=== PATIENT | female | born 1970 | race Caucasian/White ===

== ENCOUNTER 2019-12-07 12:13 | Outpatient (CLI) | payer OTHER, SELFPAY ==
--- NOTE | ~2019-12-07 | XR_ITS ---
XR thoracic spine 3V DATE: 12/07/2019 12:51 INDICATION: Upper back pain. No known injury. TECHNIQUE: AP, lateral, swimmer views COMPARISON: None FINDINGS: There is multilevel degenerative disease of the cervical spine. There is mild degenerative spurring of the thoracic spine. No fracture or dislocation or bone destruction. The thoracic pedicles are intact. No paraspinal soft tissue thickening. IMPRESSION: Degenerative changes of the cervical and thoracic spine Reviewed, dictated and finalized at location B.
--- NOTE | ~2019-12-07 | CT_ITS ---
EXAMINATION: CTA chest PE protocol EXAM DATE: 12/07/2019 14:58 INDICATION: Elevated d-dimer, posterior chest pain. TECHNIQUE: Spiral CTA of the chest (pulmonary arteries) was performed with 100 cc Omnipaque 350 intr avenous contrast injection. Images were acquired during the pulmonary arterial phase. Coronal maxi mum intensity projection 3D-reconstructions were created by the technologist on dedicated workstation . Axial, coronal and sagittal reformatted images were reviewed. The dose-length product (DLP) for t his examination was 237.07 mGy-cm. The exposure was tailored according to patient size (auto mA exp osure control), and iterative reconstruction (ASIR) was used as additional dose reduction technique. There is no prior study for comparison. FINDINGS: Pulmonary arteries are well opacified and without intraluminal filling defects. No thora cic aortic dissection. The lungs are clear. There are no pleural or pericardial effusions. Trach eobronchial tree is patent. There is no mediastinal, hilar or axillary lymphadenopathy. There is no pneumothorax. Heart normal in size. No evidence of coronary arterial calcification. Upper abd omen is unremarkable. There is mild thoracic spondylosis without osteoblastic or osteolytic lesions identified. Paraspinal soft tissue is unremarkable. IMPRESSION: 1. No acute cardiopulmonary findings. Reviewed, dictated and finalized at location A.
[2019-12-07 12:39] LABS: Hematocrit 41.9 % (35.0-49.0); Hemoglobin 14.3 g/dL (12.0-15.0); Mean Corpuscular HGB Conc 34.1 g/dL (32.0-36.0); Mean Corpuscular Hemoglobin 29.7 pg (27.0-31.0); Mean Corpuscular Volume 87.1 fL (78.0-102.0); Mean Platelet Volume 9.6 fl (9.2-11.8); Platelet Count Result 280 K/mm3 (150-420); Red Blood Count 4.81 M/mm3 (4.20-5.40); Red Cell Distribution Width 12.9 % (11.6-14.4); White Blood Count 9.7 K/mm3 (4.8-10.8)
[2019-12-07 12:49] LABS: Add Urine Microscopic? NO; Appearance Urine Clear (Clear); Bilirubin Urine Negative (Negative); Blood Urine Negative (Negative); Color Urine Yellow (Yellow); Glucose Urine UA Negative (Negative); Ketones Urine Negative (Negative); Leukocyte Esterase Ur Negative LEU/UL (Negative); Nitrate Urine Negative (Negative); Protein Urine Negative (Negative)
[2019-12-07 13:00] LABS: D Dimer 3.39 mg/L (0.19-0.50)
[2019-12-07 13:05] LABS: Alanine Aminotransferase 86 U/L (14-59); Albumin Level 3.3 g/dL (3.4-5.0); Alkaline Phosphatase 92 U/L (46-116); Amylase 32 U/L (25-115); Anion Gap 14.1 mmol/L (7-16); Aspartate Amino Transferase 43 U/L (15-37); Band Neutrophils Percent 0 % (0-6); Basophils Percent Manual 0 % (0-1); Bilirubin,Total 0.5 mg/dL (0.00-1.00); Blood Urea Nitrogen 9 mg/dL (7-18); Calcium 8.6 mg/dL (8.5-10.1); Carbon Dioxide 25 mmol/L (21-32); Chloride 107 mmol/L (98-108); Creatine Kinase 67 U/L (26-192); Creatine Kinase MB < 0.50 ng/mL (0.00-5.00); Eosinophils Absolute Manual 1.74 K/mm3 (0.02-0.5); Eosinophils Percent Manual 18 % (1-6); Estimated Glomerular Filt Rate > 60; Free T4 Free Thyroxine 1.27 ng/dL (0.76-1.46); Glucose 91 mg/dL (70-99); Lipase 118 U/L (73-393); Lymphocytes Absolute Manual 4.17 K/mm3 (1.1-4.5); Lymphocytes Percent Manual 43 % (18-44); Monocytes Absolute Manual 0.87 K/mm3 (0.1-0.90); Monocytes Percent Manual 9 % (3-9); Neutrophils Absolute Manual 2.91 K/mm3 (1.7-7.2); Neutrophils Percent Manual 30 % (46-73); Osmolality Calculated 292 mOsm/kg (285-295); Platelet Estimate Adequate (Adequate); Potassium 4.1 mmol/L (3.5-5.1); Sodium 142 mmol/L (136-145); Thyroid Stimulating Hormone 4.57 uIU/mL (0.36-3.74); Total Cells Counted 100; Total Protein 6.9 g/dL (6.4-8.2); Troponin I < 0.02 ng/mL (0.00-0.056)
[2019-12-10 20:08] LABS: Hepatitis A Antibody IgM Nonreactive; Hepatitis B Core Antibody Nonreactive (Nonreactive); Hepatitis B Surface Antigen Nonreactive (Nonreactive); Hepatitis C Signal to Cutoff 0.02 ratio (<1.00); Hepatitis C Virus Antibody Nonreactive (Nonreactive)
== END 2019-12-07 12:14 | disposition home or self-care (01) ==
PROVIDERS: PCP Family Medicine; Visit Provider Nurse Practitioner Family
DX: R79.1 Abnormal coagulation profile (principal); R07.9 Chest pain, unspecified; R06.02 Shortness of breath; M54.9 Dorsalgia, unspecified; R79.89 Other specified abnormal findings of blood chemistry
CPT/HCPCS: 36415; 71275; 72072; 80053; 80074; 81003; 82150; 82550; 82553; 83690; 84439; 84443; 84484; 85025; 85380; Q9965

== ENCOUNTER 2019-12-08 14:40 | Outpatient (CLI) | payer OTHER, SELFPAY ==
--- NOTE | ~2019-12-08 | US_ITS ---
US right upper quadrant INDICATION: Elevated liver enzymes PROCEDURE: Realtime right upper abdominal ultrasound. COMPARISON: No prior studies for comparison. FINDINGS: The pancreas is normal without focal mass or pancreatic ductal dilation. Liver echotexture is normal without focal mass or intrahepatic biliary dilatation. There is normal directional flow i n the portal vein. Gallbladder is surgically absent Common bile duct measures 4 mm. No sonographic Salter's sign. IMPRESSION: 1: Unremarkable limited abdominal ultrasound postcholecystectomy. Reviewed, dictated and finalized at location A.
== END 2019-12-08 14:41 | disposition home or self-care (01) ==
LOC: CHSLAB 14:43
PROVIDERS: PCP Family Medicine; Visit Provider Nurse Practitioner Family
DX: R79.89 Other specified abnormal findings of blood chemistry (principal); N76.0 Acute vaginitis; Z01.419 Encounter for gynecological examination (general) (routine) without abnormal findings
CPT/HCPCS: 36415; 76705; 87491; 87510; 87591; 87624; 87660; 88142

== ENCOUNTER 2020-09-13 10:20 | Outpatient (CLI) | payer OTHER, SELFPAY ==
[2020-09-14 12:24] LABS: SARS-CoV-2 RNA PCR Negative
== END 2020-09-13 10:21 | disposition home or self-care (01) ==
LOC: CHSLAB 10:25
PROVIDERS: PCP Family Medicine; Visit Provider Family Medicine
DX: Z20.828 Contact with and (suspected) exposure to other viral communicable diseases (principal)
CPT/HCPCS: 87635; C9803; U0003

== ENCOUNTER 2020-09-15 10:35 | Outpatient (CLI) | payer OTHER, SELFPAY ==
[2020-09-16 20:00] LABS: SARS-CoV-2 RNA PCR Negative
== END 2020-09-15 10:36 | disposition home or self-care (01) ==
LOC: CHSLAB 10:37
PROVIDERS: PCP Family Medicine; Visit Provider Family Medicine
DX: Z20.828 Contact with and (suspected) exposure to other viral communicable diseases (principal)
CPT/HCPCS: 87635; C9803; U0003

== ENCOUNTER 2021-10-09 14:15 | Outpatient (CLI) | payer OTHER, SELFPAY ==
[2021-10-09 15:25] LABS: Influenza Control Valid (Valid)
[2021-10-09 15:33] LABS: SARS-CoV-2 Ag Negative (Negative)
== END 2021-10-09 14:16 | disposition home or self-care (01) ==
LOC: CHSLAB 14:18
PROVIDERS: PCP Family Medicine; Visit Provider Family Medicine
DX: R50.9 Fever, unspecified (principal); R52 Pain, unspecified; Z20.822 Contact with and (suspected) exposure to COVID-19
CPT/HCPCS: 87426; 87804; C9803

== ENCOUNTER 2022-04-20 07:29 | Outpatient (CLI) | payer OTHER, SELFPAY ==
[2022-04-20 08:07] LABS: Add Urine Microscopic? NO; Appearance Urine Clear (Clear); Basophils Absolute Auto 0.11 K/mm3 (0.00-0.10); Basophils Percent Auto 0.7 % (0.0-1.0); Bilirubin Urine Negative (Negative); Blood Urine Negative (Negative); Color Urine Light Yellow (Yellow); Eosinophils Absolute Auto 0.96 K/mm3 (0.02-0.50); Eosinophils Percent Auto 6.5 % (1.0-6.0); Glucose Urine UA Negative (Negative); Hematocrit 44.9 % (35.0-49.0); Immature Granulocyte Absolute 0.07 K/mm3 (0.00-0.00); Immature Granulocyte Percent A 0.5 % (0.0-0.0); Ketones Urine Negative (Negative); Leukocyte Esterase Ur Negative LEU/UL (Negative); Lymphocytes Absolute Auto 3.96 K/mm3 (1.10-4.50); Lymphocytes Percent Auto 26.6 % (18.0-42.0); Mean Corpuscular HGB Conc 33.4 g/dL (32.0-36.0); Mean Corpuscular Hemoglobin 29.9 pg (27.0-31.0); Mean Corpuscular Volume 89.6 fL (78.0-102.0); Mean Platelet Volume 9.9 fl (9.2-11.8); Monocytes Absolute Auto 0.72 K/mm3 (0.10-0.90); Monocytes Percent Auto 4.8 % (2.0-11.0); Neutrophils Percent Auto 60.9 % (50.0-70.0); Nitrate Urine Negative (Negative); Platelet Count Result 304 K/mm3 (150-420); Protein Urine Negative (Negative); Red Blood Count 5.01 M/mm3 (4.20-5.40); Red Cell Distribution Width 12.9 % (11.6-14.4); Specific Grav Ur <= 1.005 (1.010-1.020); Urobilinogen Urine 0.2 mg/dL (0.2-1.0); White Blood Count 14.9 K/mm3 (4.8-10.8)
[2022-04-20 08:53] LABS: Alanine Aminotransferase 24 U/L (14-59); Alkaline Phosphatase 58 U/L (46-116); Anion Gap 9 mmol/L (8-16); Aspartate Amino Transferase 18 U/L (15-37); Bilirubin,Total 0.4 mg/dL (0.00-1.00); Blood Urea Nitrogen 10 mg/dL (7-18); Calcium 9.6 mg/dL (8.5-10.1); Carbon Dioxide 25 mmol/L (21-32); Chloride 106 mmol/L (98-108); Cholesterol 197 mg/dL (0-200); Estimated Glomerular Filt Rate > 60; Glucose 87 mg/dL (70-99); HDL Direct 50 mg/dL (40-60); LDL Cholesterol Calculated 128 mg/dL (<130); Osmolality Calculated 288 mOsm/kg (285-295); Potassium 4.6 mmol/L (3.5-5.1); Sodium 140 mmol/L (136-145); Thyroid Stimulating Hormone 3.47 uIU/mL (0.36-3.74); Total Protein 6.8 g/dL (6.4-8.2); Triglycerides 94 mg/dL (0-150)
[2022-04-27 22:15] LABS: ANCA Screen Negative (Negative); Myeloperoxidase Ab <1.0 AI (<1.0); Proteinase-3 Ab <1.0 AI (<1.0); S cerevisiae Ab (IgA) 5.1 U (<=20.0); S cerevisiae Ab (IgG) 4.8 U (<=20.0)
== END 2022-04-20 07:30 | disposition home or self-care (01) ==
LOC: CHSLAB 07:31
PROVIDERS: PCP Family Medicine; Visit Provider Nurse Practitioner Family
DX: Z00.00 Encounter for general adult medical examination without abnormal findings (principal)
CPT/HCPCS: 36415; 80053; 80061; 81003; 84439; 84443; 85025; 86036; 86671

== ENCOUNTER 2025-09-11 06:36 | Day surgery (SDC) | payer OTHER, SELFPAY ==
[2025-08-17 14:15] VITALS: BMI 25.4
[2025-09-07 13:17] VITALS: BMI 24.5
--- OUTSIDE RECORDS SUMMARY | 2025-09-11 06:39 | XMS_ITS | Clinical Summary ---
Author Organization [facility] Address [address] [place] [id number] Care Team Providers Care [employer] Name Role Phone Chito Walsh MD Primary Care Provider [phone] Allergies Active Allergy Reactions Criticality Noted Date Comments Codeine Vomiting 10/16/2023 Propoxyphene Itching,Vomiting 10/16/2023 Meperidine Hcl Vomiting 10/16/2023 Medications No known medications Social History Tobacco Use Types Packs/Day Years Used Date Smoking Tobacco: Every Day Cigarettes Smokeless Tobacco: Never Tobacco Cessation:Ready to Q uit: Not Asked; Counseling Given: Not Answered Alcohol Use Standard Drinks/Week Comments Not Currently 0 (1 standard drink = 0.6 oz pur e alcohol) Comments No Sex and Gender Information Value Date Recorded Sex Assigned at Not on file Legal Sex Female 9:04 PM [employer] Gender Identity Not on file Sexual Orientation Not on file Last Filed Vital Signs Vital Sign Reading Time Taken Comments Blood Pressure 121/86 10/16/2023 10:00 PM [employer] Pulse 88 10/16/2023 10:00 PM [employer] Temperature 36.3 C (97.3 F) 10/16/2023 8:52 PM [employer] Respiratory Rate 16 10/16/2023 10:00 PM [employer] Oxygen Saturation 97% 10/16/2023 10:00 PM [employer] Inhaled Oxygen Concentration - - Weight 68 kg (150 lb) 10/16/2023 8:52 PM [employer] Height 165.1 cm (5' 5) 10/16/2023 8:52 PM [employer] Body Mass Index 24.96 10/16/2023 8:52 PM [employer] Plan of Treatment Health Maintenance Due Date Last Done Comments Cervical Cancer Screening Pa p Smear (Age 30 to 64) Every 3 Years 1972 Colorectal Cancer Screening Colonoscopy (10 Years) 1972 Annual Physical 1975 Hepatitis C 1990 Hepatitis B Vaccines (1 of 3 - 19+ 3-dose series) 1991 Pneumococcal Vaccine: 50+ Ye ars (1 of 2 - PCV) 1991 Cervical Cancer Screening Pa p with HPV Testing (Age 30 to 64) Every 5 Years 2002 Cervical Cancer Screening with HPV 2002 Mammogram Screening 2012 Zoster Vaccines (1 of 2) 2022 COVID-19 Vaccine (1 - 2024-2 6 season) 2025 Influenza Adult (#1) 2025 DTaP, Tdap and Td Vaccines ( 2 - Td or Tdap) 05/17/2031 05/17/2021 Hepatitis A Vaccines Aged Out No long er eligible based on patient's age to complete this topic Meningococcal B Vaccine Aged Out No l onger eligible based on patient's age to complete this topic Meningococcal Vaccine Aged Out No nelia myrna eligible based on patient's age to complete this topic RSV Immunizations Under 20 Months Aged Out No longer eligible based on patient's age to complete this topic Insurance [facility] Care Teams [employer] Relationship Specialty Start Date End Date Chito Walsh MD [address] [place] [address] PCP - General FAMILY PRACTICE 10/16/23
[2025-09-11 07:02] VITALS: BMI 24.5
[2025-09-11 07:04] VITALS: BP 117/85; PULSE 92; RESP 18; TEMP 37; O2SAT 99
[2025-09-11] MEDS: LACTATED RINGERS 1,000 ML 150 ML IV CONT (07:38)
--- NOTE | 2025-09-11 08:37 | PM.IMHP2 ---
H&P: HPI History of Present Illness Date/Time: 09/11/25 08:37 Chief Complaint: screening colonoscopy Narrative: This is the patient's first colonoscopy. There are no GI symptoms and there is no family history of colorectal cancer. Review of Systems Review of Systems: All systems reviewed & are unremarkable except as noted in HPI and below PMFSH Social History Social History Years smoked: 20 Smoking status: Current every day smoker Tobacco type: cigarettes Substance use type: does not use Living arrangements: with family Spiritual care concerns: No Meds Home Medications and Allergies Home Medications ?Medication ?Instructions ?Recorded ?Confirmed ?Type alprazolam 0.5 mg tablet 0.25 mg PO DAILY PRN anxiety 09/07/25 09/11/25 History Allergies Allergy/AdvReac Type Severity Reaction Status Date / Time codeine Allergy Severe Vomiting Verified 09/11/25 06:47 meperidine (From Demerol) Allergy Severe Vomiting Verified 09/11/25 06:47 morphine Allergy Severe Vomiting Verified 09/11/25 06:47 propoxyphene (From Allergy Severe Vomiting Verified 09/11/25 06:47 Darvocet-N) [place] nut Allergy Intermediate Rash Verified 09/11/25 06:47 Vital Signs Vital Signs - 24 hr 09/11/25 07:04 Temperature 98.6 F Pulse Rate 92 Respiratory Rate 18 Blood Pressure 117/85 Pulse Oximetry 99 Oxygen Delivery Room Air Exam Const: General: cooperative and healthy appearing Resp: Effort & Inspection: normal respiratory effort and able to speak in complete sentences Auscultation: clear to auscultation bilaterally Cardio: Rate: regular rate Rhythm: regular rhythm GI: Inspection: normal to inspection GI Palp: No No hepatosplenomegaly present Auscultation: normal bowel sounds Rectal Exam: deferred Skin: General skin exam: normal color Psych: Appearance: grossly normal Mental Status: mental status grossly normal Assessment and Plan Assessment and plan (1) Encounter for screening colonoscopy: Code(s): Z12.11 - Encounter for screening for malignant neoplasm of colon Status: Acute Assessment and Plan: The patient is deemed a good candidate for the procedure. Consent signed. Will proceed.
--- NOTE | 2025-09-11 08:38 | WPDANESEPPF ---
Anes - Initial Pre Proc Eval Procedure: Operation Date: 09/11/25 08:30 Proposed Procedures p Screening Colonoscopy - Bakari Barraza MD Date/Time: 09/11/25 08:38 Surgeon: Bakari Barraza MD Pre Op Diagnosis: Encounter for screening for malignant neoplasm of Patient Data Age: 54 Gender: F Height: 1.65 m Weight: 67 kg Last Vital Signs Temp 37.0 C 09/11/25 07:04 Pulse 92 09/11/25 07:04 Resp 18 09/11/25 07:04 BP 117/85 09/11/25 07:04 Pulse Ox 99 09/11/25 07:04 O2 Del Method Room Air 09/11/25 07:04 Allergies Allergy/AdvReac Type Severity Reaction Status Date / Time codeine Allergy Severe Vomiting Verified 09/11/25 06:47 meperidine (From Demerol) Allergy Severe Vomiting Verified 09/11/25 06:47 morphine Allergy Severe Vomiting Verified 09/11/25 06:47 propoxyphene (From Allergy Severe Vomiting Verified 09/11/25 06:47 Darvocet-N) [place] nut Allergy Intermediate Rash Verified 09/11/25 06:47 Home Medications ?Medication ?Instructions ?Recorded ?Confirmed ?Type alprazolam 0.5 mg tablet 0.25 mg PO DAILY PRN anxiety 09/07/25 09/11/25 History Patient hx anesthesia problems: none Family hx anesthesia problems: none Results Review: All pre-operative results and documents have been reviewed as part of the pre-operative evaluation. PMFSH Social History Social History Years smoked: 20 Smoking status: Current every day smoker Tobacco type: cigarettes Substance use type: does not use Living arrangements: with family Spiritual care concerns: No Anes - Eval Final PreProcedure Day of Procedure 09/11/25 08:38 Heart: regular rate and rhythm Lungs: clear to auscultation Airway: Mallampati scale class II Neurological: alert and oriented Last oral intake: >/= 8 hours ASA classification: II Emergent: no Anesthetic plan: proceed Anesthesia type and monitoring: monitored anesthesia care Results Review: All pre-operative results and documents have been reviewed as part of the pre-operative evaluation. Informed Consent: The patient's anesthetic plan and its attendant risks and benefits were discussed with the patient/family/POA. Questions were solicited and answers provided to the satisfaction of the patient/family/POA.
[2025-09-11 09:12] VITALS: BP 86/46; PULSE 71; RESP 16; O2SAT 96
--- NOTE | 2025-09-11 09:15 | WPDANESPN ---
Anes - Prog Note Post-Op Date/Time: 09/11/25 09:15 Cardiovascular status: normal Respiratory status: normal Airway patency: baseline Mental status: baseline Post-Op hydration status: normal Vital Signs: Last Vital Signs Temp 37.0 C 09/11/25 07:04 Pulse 92 09/11/25 07:04 Resp 18 09/11/25 07:04 BP 117/85 09/11/25 07:04 Pulse Ox 99 09/11/25 07:04 O2 Del Method Room Air 09/11/25 07:04 Pain Score (VAS): 0 I/O: Intake & Output 09/10/25 09/11/25 09/11/25 23:59 07:59 15:59 Intake Total 0 Balance 0 Patient Feedback: Patient satisfied with anesthetic care.
[2025-09-11 09:22] VITALS: BP 96/78; PULSE 75; RESP 16; O2SAT 98
[2025-09-11 09:32] VITALS: BP 93/69; PULSE 72; RESP 18; O2SAT 99
== END 2025-09-11 09:38 | disposition home or self-care (01) ==
PROVIDERS: PCP Family Medicine; Referring Provider Family Medicine; Visit Provider Internal Medicine Gastroenterology
PROC: 0DJD8ZZ Inspection of Lower Intestinal Tract, Via Natural or Artificial Opening Endoscopic (ICD-10-PCS; CPT 45378; principal; 2025-09-11 08:30)
DX: Z12.11 Encounter for screening for malignant neoplasm of colon (principal); D12.3 Benign neoplasm of transverse colon; D12.0 Benign neoplasm of cecum; D12.5 Benign neoplasm of sigmoid colon
CPT/HCPCS: 45385

== ENCOUNTER 2025-09-11 11:49 | Outpatient (NON) | payer OTHER, SELFPAY ==
--- NOTE | 2025-09-11 | S_PTH ---
PATIENT: Katie Arceo LOC: [facility] U#:[id number] AGE/SX: 54/F ROOM: RE09/11/[address]: Bakari Barraza MD : 1970 BED: DIS: 09/11/2025 SPEC #: [id number] RECD: 09/13/25 13:58 STATUS: LEIDY RECole #: [id number] HUGH: 09/11/25 00:[address]: Bakari Barraza DEPT: [facility] Surgical RECD BY: Vaishnavi Marshall ENTERED: 09/13/25 14:00 SP TYPE: Surgical OTHR DR: Chito Walsh MD Tissues: A - Colon Polypectomy B - Colon Polypectomy C - Colon Polypectomy Procedures: Hematoxylin and Eosin Stain Gross and Microscopic Level 4
== END 2025-09-11 11:50 | disposition home or self-care (01) ==
LOC: ANHLAB 09-13 11:49
PROVIDERS: PCP Family Medicine; Visit Provider Internal Medicine Gastroenterology
DX: D12.5 Benign neoplasm of sigmoid colon (principal); K63.89 Other specified diseases of intestine; D12.2 Benign neoplasm of ascending colon; Z12.11 Encounter for screening for malignant neoplasm of colon
CPT/HCPCS: 88305